=== PATIENT | female | born 1990 ===

== ENCOUNTER 2017-02-03 23:00 | Emergency (ER) | payer OTHER ==
[2017-02-03 23:12] VITALS: BP 110/68; PULSE 105; RESP 16; TEMP 98.4; O2SAT 98
[2017-02-03] MEDS ORDERED: Sodium Chloride 0.9% 1,000 ML IV STA (23:32)
[2017-02-03] MEDS ORDERED: Dextrose 5%/0.45% NS 1,000 ML IV SCH (23:45)
[2017-02-03 23:52] LABS: BASO % 0.5 % (0.0-2.0); EOS % 0.2 % (0.0-4.0); HEMATOCRIT 43.1 % (34.0-47.0); LYMPH # 1.7 K/uL (1.0-4.3); LYMPH % 17.1 % (20.0-40.0); MEAN CELL VOLUME 87.3 fl (81.0-99.0); MEAN CORPUSCULAR HEMOGLOBIN 28.3 pg (27.0-31.0); MEAN CORPUSCULAR HGB CONC 32.5 g/dL (33.0-37.0); MEAN PLATELET VOLUME 7.9 fl (7.2-11.7); MONO % 10.2 % (0.0-10.0); RED CELL DISTRIBUTION WIDTH 14.8 % (11.5-14.5); WHITE BLOOD COUNT 9.7 K/uL (4.8-10.8)
--- NOTE | 2017-02-03 23:58 | ED PDOC ---
HPI:Nausea, Vomiting, Diarrhea Time Seen by Provider: 02/03/17 23:18 Chief Complaint (Nursing): GI Problem Chief Complaint (Provider): Vomiting History Per: Patient History/Exam Limitations: no limitations Onset/Duration Of Symptoms: Days (x1) Current Symptoms Are (Timing): Still Present Have you had recent travel within the past 21 days to any of the following countries: [place], [place], [place] or [place]?: No Associated Symptoms: Nausea, Vomiting (non-bilious/non-bloody, more times than she can count), Other (generalized weakness/fatigue; no cough, shortness of breath, abdominal pain). denies: Fever, Diarrhea Additional Complaint(s): Jacquie Vasquez is a 26 year old female with a past medical history inclusive of a previous D&C, who presents to the ED on 02/03/17 for the evaluation of both nausea and multiple episodes (too many to count) of non- bilious/non-bloody vomiting that she has experienced over the course of the day today. Patient reports that she is now vomiting only clear fluid and that she has also been feeling generally weak/fatigued. Denies fever, cough, shortness of breath, abdominal pain or diarrhea. PMD: unable to remember name Past Medical History Reviewed: Historical Data, Nursing Documentation, Vital Signs Vital Signs: Last Vital Signs Temp 98.4 F 02/03/17 23:09 Pulse 105 H 02/03/17 23:09 Resp 16 02/03/17 23:09 BP 110/68 02/03/17 23:09 Pulse Ox 98 02/03/17 23:09 - Medical History PMH: No Chronic Diseases - Surgical History Other surgeries: D&C - Family History Family History: States: Unknown Family Hx - Social History Current smoker - smoking cessation education provided: No Alcohol: None Drugs: Denies - Home Medications Home Medications: Ambulatory Orders Medication Instructions Recorded Famotidine [Pepcid] 20 mg PO Q12 #14 tab 02/04/17 Ondansetron ODT [Zofran ODT] 4 mg PO Q6 PRN #16 odt 02/04/17 - Allergies Allergies/Adverse Reactions: Allergies Allergy/AdvReac Type Severity Reaction Status Date / Time No Known Allergies Allergy Verified 02/03/17 23:11 Review of Systems ROS Statement: Except As Marked, All Systems Reviewed And Found Negative Constitutional: Negative for: Fever Respiratory: Negative for: Cough, Shortness of Breath Gastrointestinal: Positive for: Nausea, Vomiting (multiple episodes, non-bilious /non-bloody/clear). Negative for: Abdominal Pain, Diarrhea Physical Exam - Reviewed Nursing Documentation Reviewed: Yes Vital Signs Reviewed: Yes - Physical Exam Appears: Positive for: Uncomfortable Head Exam: Positive for: ATRAUMATIC, NORMOCEPHALIC Skin: Positive for: Normal Color, Warm, Dry Eye Exam: Positive for: Normal appearance, PERRL ENT: Positive for: Other (tacky mucous membranes). Negative for: Pharyngeal Erythema, Tonsillar Exudate, Tonsillar Swelling Cardiovascular/Chest: Positive for: Regular Rate, Rhythm. Negative for: Murmur Respiratory: Positive for: Normal Breath Sounds. Negative for: Respiratory Distress Gastrointestinal/Abdominal: Positive for: Normal Exam, Soft. Negative for: Tenderness Back: Positive for: Normal Inspection Neurologic/Psych: Positive for: Alert, Oriented - Laboratory Results Result Diagrams: 02/03/17 23:30 02/03/17 23:30 Urine POC: Negative - ECG O2 Sat by Pulse Oximetry: 98 (RA) Pulse Ox Interpretation: Normal Medical Decision Making Medical Decision Makin:18 Initial Impression: 26 year old female with multiple episodes of vomiting Initial Plan: * Labs * Lipase * Upreg * Udip * Urinalysis * IV NS 1000ml at 1000mls/hr * Dextrose 1000ml at 1000mls/hr * Zofran 4mg IV * Reevaluation Upreg is negative. PAtient reports resolution in symptoms and feels well on discharge DX Acute Gastritis RX Zofran/Pepcid FU PCP 1-2 days Scribe Attestation: Documented by Senia Baires, acting as a scribe for Andi Eastman MD. Provider Scribe Attestation: All medical record entries made by the Scribe were at my direction and personally dictated by me. I have reviewed the chart and agree that the record accurately reflects my personal performance of the history, physical exam, medical decision making, and the department course for this patient. I have also personally directed, reviewed, and agree with the discharge instructions and disposition. Disposition - Clinical Impression Clinical Impression: Gastritis - Disposition Referrals: [facility] [Outside] Disposition: Routine/Home Disposition Time: 01:00 Condition: STABLE Prescriptions: Famotidine [Pepcid] 20 mg PO Q12 #14 tab Ondansetron ODT [Zofran ODT] 4 mg PO Q6 PRN #16 odt PRN Reason: Nausea/Vomiting Instructions: Gastritis (ED)
[2017-02-04 00:05] LABS: ALKALINE PHOSPHATASE 71 U/L (38-126); ALT/SGPT 38 U/L (9-52); AST/SGOT 43 U/L (14-36); BILIRUBIN,TOTAL 1.1 mg/dl (0.2-1.3); BLOOD UREA NITROGEN 13 mg/dl (7-17); CALCIUM 9.6 mg/dL (8.4-10.2); CARBON DIOXIDE 23 mmol/L (22-30); CHLORIDE 100 mmol/L (98-107); GFR AFRICAN-AMERICAN > 60; GLUCOSE,RANDOM 93 mg/dL (65-105); LIPASE 186 U/L (23-300); POTASSIUM 3.7 MMOL/L (3.6-5.0); RBC URINE 8 /hpf (0-3); SODIUM 141 mmol/l (132-148); TOTAL PROTEIN 8.8 G/DL (6.3-8.2); URINE BACTERIA OCC (<OCC); URINE BILIRUBIN NEGATIVE (NEGATIVE); URINE COLOR YELLOW (YELLOW); URINE GLUCOSE (UA) NEG (Normal); URINE KETONE 80 mg/dL (NEGATIVE); URINE LEUKOCYTE ESTERASE MOD Leu/uL (Negative); URINE PROTEIN 30 mg/dL (NEGATIVE); URINE UROBILINOGEN 0.2-1.0 mg/dL (0.2-1.0); WBC URINE 17 /hpf (0-5)
[2017-02-04 00:06] LABS: ALB/GLOB RATIO 1.1 (1.0-2.1); URINE BLOOD SMALL (NEGATIVE)
== END 2017-02-04 01:39 | disposition home or self-care (01) ==
LOC: H.ER 23:00
DX: K29.70 Gastritis, unspecified, without bleeding (principal); R11.2 Nausea with vomiting, unspecified; R19.7 Diarrhea, unspecified

== ENCOUNTER 2017-06-01 01:05 | Emergency (ER) | payer OTHER ==
[2017-06-01] MEDS ORDERED: Sodium Chloride 0.9% 1,000 ML IV STA (01:50)
--- NOTE | 2017-06-01 01:53 | ED PDOC ---
HPI: Headache Time Seen by Provider: 06/01/17 01:40 Chief Complaint (Nursing): Headache Chief Complaint (Provider): headache History Per: Patient History/Exam Limitations: no limitations Onset/Duration Of Symptoms: Days (6), Waxing/Waning Current Symptoms Are (Timing): Still Present Quality: Tightness, "Pain" Associated Symptoms: Photophobia, Nausea Additional History Per: Patient Additional Complaint(s): 27 y/o female presents with intermittent frontal headache x 6 days. Patient admits to similar headaches in past, was diagnosed with Migraines in [facility] but never started on meds. Patient notes no improvement of headache with Advil , last taken 18:00 yesterday. Denies fever, dizziness, vision changes, nausea/ vomiting, chest pain, shortness of breath, palpitations. Past Medical History Reviewed: Historical Data, Nursing Documentation, Vital Signs Vital Signs: Last Vital Signs Temp 99.2 F 06/01/17 01:31 Pulse 63 06/01/17 01:31 Resp 18 06/01/17 01:31 BP 101/68 06/01/17 01:31 Pulse Ox 100 06/01/17 01:31 - Medical History PMH: No Chronic Diseases - Surgical History Surgical History: No Surg Hx - Family History Family History: States: Unknown Family Hx - Home Medications Home Medications: Ambulatory Orders Medication Instructions Recorded Famotidine [Pepcid] 20 mg PO Q12 #14 tab 02/04/17 Ondansetron ODT [Zofran ODT] 4 mg PO Q6 PRN #16 odt 02/04/17 Acetaminophen/Butalbital/Caf 1 tab PO Q6 PRN #10 tab 06/01/17 [Fioricet] - Allergies Allergies/Adverse Reactions: Allergies Allergy/AdvReac Type Severity Reaction Status Date / Time No Known Allergies Allergy Verified 06/01/17 01:31 Review of Systems ROS Statement: Except As Marked, All Systems Reviewed And Found Negative Neurological: Positive for: Headache Physical Exam - Reviewed Nursing Documentation Reviewed: Yes Vital Signs Reviewed: Yes - Physical Exam Appears: Positive for: Well, Non-toxic, No Acute Distress Head Exam: Positive for: ATRAUMATIC, NORMAL INSPECTION, NORMOCEPHALIC Skin: Positive for: Normal Color Eye Exam: Positive for: Normal appearance, EOMI, PERRL ENT: Positive for: Normal ENT Inspection Cardiovascular/Chest: Positive for: Regular Rate, Rhythm Respiratory: Positive for: Normal Breath Sounds Gastrointestinal/Abdominal: Positive for: Normal Exam Back: Positive for: Normal Inspection Extremity: Positive for: Normal ROM Neurologic/Psych: Positive for: Alert, Oriented - Laboratory Results Result Diagrams: 06/01/17 02:24 06/01/17 02:24 - ECG O2 Sat by Pulse Oximetry: 100 - Progress ED Course And Treament: labs, IV fluids, IV reglan, PO tylenol On re-eval, patient notes only slight improvement of pain. CT head ordered EXAM: CT Head Without Intravenous Contrast CLINICAL HISTORY: 27 years old, female; Pain; Headache; Headache not specified TECHNIQUE: Axial computed tomography images of the head/brain without intravenous contrast. This CT exam was performed using one or more of the following dose reduction techniques: automated exposure control, adjustment of the mA and/or kV according to patient size, and/or use of iterative reconstruction technique. Coronal and sagittal reformatted images were created and reviewed. COMPARISON: No relevant prior studies available. FINDINGS: Brain: No acute intracranial hemorrhage. No significant white matter disease. No edema. Ventricles: No significant ventriculomegaly. Bones: No acute displaced fracture. Sinuses: Unremarkable as visualized. No acute sinusitis. Mastoid air cells: Unremarkable as visualized. No mastoid effusion. IMPRESSION: No acute intracranial hemorrhage, or suspicious mass effect. Patient now states headache almost resolved; patient offered IV toradol and states she would like to try Patient educated on findings, discharged with rx Fioricet. Advised follow up PMD 2-3 days. Return to ED for worsening/concerning symptoms. Disposition - Clinical Impression Clinical Impression: Headache - Patient ED Disposition Is Patient to be Admitted: No Counseled Patient/Family Regarding: Studies Performed, Diagnosis, Need For Followup, Rx Given - Disposition Referrals: [facility] [Outside] Disposition: Routine/Home Disposition Time: 05:50 Condition: IMPROVED Prescriptions: Acetaminophen/Butalbital/Caf [Fioricet] 1 tab PO Q6 PRN #10 tab PRN Reason: Headache Instructions: Migraine Headache (ED)
[2017-06-01 02:47] LABS: BASO % 0.3 % (0.0-2.0); EOS % 0.7 % (0.0-4.0); HEMOGLOBIN 13.7 g/dL (12.0-16.0); LYMPH # 1.7 K/uL (1.0-4.3); MEAN CELL VOLUME 86.7 fl (81.0-99.0); MEAN CORPUSCULAR HEMOGLOBIN 28.6 pg (27.0-31.0); MONO # 0.5 K/uL (0.0-0.8); MONO % 9.3 % (0.0-10.0); NEUT # 3.3 K/uL (1.8-7.0); NEUT % 59.7 % (50.0-75.0); NRBC % 0.1 % (0.0-0.0); RBC 4.78 Mil/uL (3.80-5.20); WHITE BLOOD COUNT 5.6 K/uL (4.8-10.8)
[2017-06-01 03:10] LABS: ALB/GLOB RATIO 1.4 (1.0-2.1); ALBUMIN 4.9 g/dL (3.5-5.0); ALT/SGPT 33 U/L (9-52); AST/SGOT 53 U/L (14-36); BLOOD UREA NITROGEN 17 mg/dl (7-17); CALCIUM 9.5 mg/dL (8.4-10.2); GFR AFRICAN-AMERICAN > 60; GFR NON-AFRICAN AMERICAN > 60
--- NOTE | 2017-06-01 05:32 | CT ---
EXAM: CT Head Without Intravenous Contrast CLINICAL HISTORY: 27 years old, female; Pain; Headache; Headache not specified TECHNIQUE: Axial computed tomography images of the head/brain without intravenous contrast. This CT exam was performed using one or more of the following dose reduction techniques: automated exposure control, adjustment of the mA and/or kV according to patient size, and/or use of iterative reconstruction technique. Coronal and sagittal reformatted images were created and reviewed. COMPARISON: No relevant prior studies available. FINDINGS: Brain: No acute intracranial hemorrhage. No significant white matter disease. No edema. Ventricles: No significant ventriculomegaly. Bones: No acute displaced fracture. Sinuses: Unremarkable as visualized. No acute sinusitis. Mastoid air cells: Unremarkable as visualized. No mastoid effusion. IMPRESSION: No acute intracranial hemorrhage, or suspicious mass effect.
[2017-06-01 05:57] VITALS: BP 111/59; PULSE 67; RESP 16; TEMP 98.6; O2SAT 98
== END 2017-06-01 05:57 | disposition home or self-care (01) ==
LOC: H.ER 01:05
DX: R51 Headache (principal)

== ENCOUNTER 2018-06-16 13:29 | Emergency (ER) | payer OTHER ==
[2018-06-16 13:50] VITALS: BP 122/79; PULSE 70; RESP 18; TEMP 97.7; O2SAT 100
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
--- NOTE | 2018-06-16 15:09 | RAD ---
Date of service: 06/16/2018 PROCEDURE: Right Wrist Radiographs. HISTORY: trauma COMPARISON: None. FINDINGS: BONES: Buckle fracture distal radius. Transverse orientation which does not extend to the articular surface. JOINTS: Normal. No dislocation. SOFT TISSUES: Normal. OTHER FINDINGS: None. IMPRESSION: Acute fracture distal right radius.
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
== END 2018-06-16 16:45 | disposition home or self-care (01) ==
LOC: H.ER 13:29
DX: S52.591A Other fractures of lower end of right radius, initial encounter for closed fracture (principal); W19.XXXA Unspecified fall, initial encounter; Y92.89 Other specified places as the place of occurrence of the external cause

== ENCOUNTER 2018-09-26 17:04 | Emergency (ER) | payer OTHER ==
[2018-09-26 17:13] VITALS: TEMP 98.4
[2018-09-26] MEDS ORDERED: Silver Sulfadiazine 1% CREAM (50 gm) ONE (17:23)
[2018-09-26] MEDS ORDERED: Tdap Vaccine 0.5 ml Vial (10-64 yrs) IM ONE ×2 (17:28→17:58)
[2018-09-26] MEDS ORDERED: Silver Sulfadiazine 1% CREAM (50 gm) TOP STA (17:28)
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
[2018-09-26] MEDS ORDERED: Oxycodone/Acetaminophen 5/325 mg Tab PO STA (18:23)
[2018-09-26] MEDS ORDERED: Oxycodone/Acetaminophen 5/325 mg Tab ONE (18:26)
[2018-09-26 22:37] VITALS: BP 112/74; PULSE 74; RESP 14; O2SAT 98
== END 2018-09-26 22:37 | disposition home or self-care (01) ==
LOC: H.ER 17:04
DX: S69.91XA Unspecified injury of right wrist, hand and finger(s), initial encounter (principal); F17.200 Nicotine dependence, unspecified, uncomplicated; X19.XXXA Contact with other heat and hot substances, initial encounter; Z23 Encounter for immunization
CPT/HCPCS: 90471; 90715; 96372; 96374; 96375; 99284; J1170; J1885; J2270; J2405; J2765

== ENCOUNTER 2019-01-03 12:31 | Emergency (ER) | payer OTHER ==
[2019-01-03] MEDS ORDERED: Sodium Chloride 0.9% 1,000 ML IV STA (13:10)
[2019-01-03 13:47] LABS: ALB/GLOB RATIO 1.1 (1.0-2.1); ALBUMIN 4.3 g/dL (3.5-5.0); ALT/SGPT 22 U/L (9-52); AST/SGOT 28 U/L (14-36); BLOOD UREA NITROGEN 15 mg/dl (7-17); CALCIUM 9.5 mg/dL (8.4-10.2); GFR NON-AFRICAN AMERICAN > 60
--- NOTE | 2019-01-03 13:51 | ED PDOC ---
HPI: SOB/CHF/COPD Time Seen by Provider: 01/03/19 12:49 Chief Complaint (Nursing): Shortness Of Breath Chief Complaint (Provider): Shortness Of Breath History Per: Patient History/Exam Limitations: no limitations Onset/Duration Of Symptoms: Days (x3 weeks) Additional Complaint(s): Jacquie Alexander is a 28 year old female with no past medical history, who presents to the emergency department complaining of flu like symptoms, including cough and congestion for the past x3 weeks. Patient states that yesterday she took a multivitamin specialized for "energy" and shortly after, around 230am, drank one red bull. She states that about 30-40 minutes after she started to get numbness to all her fingers tips bilaterally. Patient felt gittery, anxiety and has some shortness of breath. She denies any chest pain, palpitations, HI, SI, hemoptysis, leg pain, recent prolonged limb immobiliza tion, recent surgery, hormonal therapy, history of PE, DVT or thyroid disease. PMD: No provider Past Medical History Reviewed: Historical Data, Nursing Documentation, Vital Signs Vital Signs: Last Vital Signs Temp 97.6 F 01/03/19 12:41 Pulse 69 01/03/19 12:41 Resp 17 01/03/19 13:34 BP 136/87 01/03/19 12:41 Pulse Ox 98 01/03/19 13:34 - Medical History PMH: Migraine - Surgical History Surgical History: No Surg Hx - Family History Family History: States: Unknown Family Hx - Home Medications Home Medications: Ambulatory Orders Medication Instructions Recorded Famotidine [Pepcid] 20 mg PO Q12 #14 tab 02/04/17 Ondansetron ODT [Zofran ODT] 4 mg PO Q6 PRN #16 odt 02/04/17 Acetaminophen/Butalbital/Caf 1 tab PO Q6 PRN #10 tab 06/01/17 [Fioricet] Naproxen [Naprosyn] 500 mg PO BID PRN #10 tab 06/16/18 Ibuprofen [Motrin] 600 mg PO Q6 #20 tab 09/26/18 Silver Sulfadiazine [Silvadene] 1 ea TP BID #1 cream..g. 09/26/18 oxyCODONE/Acetaminophen [Percocet 1 ea PO Q6 PRN #10 tab 09/26/18 5/325 mg Tab] - Allergies Allergies/Adverse Reactions: Allergies Allergy/AdvReac Type Severity Reaction Status Date / Time No Known Allergies Allergy Verified 06/16/18 13:47 Review of Systems ROS Statement: Except As Marked, All Systems Reviewed And Found Negative ENT: Positive for: Nose Congestion Cardiovascular: Negative for: Chest Pain, Palpitations Respiratory: Positive for: Cough. Negative for: Hemoptysis Musculoskeletal: Negative for: Leg Pain Physical Exam - Reviewed Nursing Documentation Reviewed: Yes Vital Signs Reviewed: Yes - Physical Exam Appears: Positive for: Non-toxic, No Acute Distress Head Exam: Positive for: ATRAUMATIC, NORMOCEPHALIC Skin: Positive for: Normal Color, Warm, Dry Eye Exam: Positive for: Normal appearance, EOMI, PERRL ENT: Positive for: Normal ENT Inspection Cardiovascular/Chest: Positive for: Regular Rate, Rhythm. Negative for: Murmur Respiratory: Positive for: Normal Breath Sounds. Negative for: Respiratory Distress Gastrointestinal/Abdominal: Positive for: Normal Exam, Soft. Negative for: Tenderness Back: Positive for: Normal Inspection. Negative for: L CVA Tenderness, R CVA Tenderness, Vertebral Tenderness Neurologic/Psych: Positive for: Alert, Oriented, Mood/Affect (sightly anxious but easily consolable ). Negative for: Motor/Sensory Deficits - Laboratory Results Result Diagrams: 01/03/19 13:31 01/03/19 13:31 - ECG ECG: Positive for: Interpreted By Me ECG Rhythm: Positive for: Sinus Rhythm. Negative for: ST/T Changes Rate: 66 O2 Sat by Pulse Oximetry: 98 (RA) Pulse Ox Interpretation: Normal - Radiology X-Ray: Interpreted by Me (CXR) X-Ray Interpretation: No Acute Disease - Progress Re-evaluation Time: 14:20 (Sleeping comfortably. Easily arousable. Reports feeling much better. Informed of all results. Advised to f/u with PMD for further evaluation but is to return to ED immediately if symptoms worsen. ) Condition: Re-examined, Improved Medical Decision Making Medical Decision Making: Time: 1309 Plan: --EKG --CMP --Thyroid stimulating hormone --Urine drug screen --ED urine --CBC with differential --CXR (PA/LAT) --Sodium chloride 1,000 ml --Television Antenna Installer --Saline lock Scribe Attestation: Documented by Gonzalo Kim, acting as a scribe for Tho Mathur Provider Scribe Attestation: All medical record entries made by the Scribe were at my direction and personally dictated by me. I have reviewed the chart and agree that the record accurately reflects my personal performance of the history, physical exam, medical decision making, and the department course for this patient. I have also personally directed, reviewed, and agree with the discharge instructions and disposition. Disposition - Clinical Impression Clinical Impression: Anxiety - Patient ED Disposition Is Patient to be Admitted: No - Disposition Referrals: [facility] [Outside] Disposition: Routine/Home Disposition Time: 14:20 Condition: IMPROVED Additional Instructions: FOLLOW UP WITH [facility] FOR FURTHER EVALUATION RETURN TO ED IMMEDIATELY IF SYMPTOMS WORSEN JACQUIE ALEXANDER, thank you for letting us take care of you today. Your provider was Mario Jesus MD and you were treated for DIFFICULTY EMILY THING/WEAKNESS. The emergency medical care you received today was directed at your acute symptoms. If you were prescribed any medication, please fill it and take as directed. It may take several days for your symptoms to resolve. Return to the Emergency Department if your symptoms worsen, do not improve, or if you have any other problems. Please contact your doctor or call one of the physicians/clinics you have been referred to that are listed on the Patient Visit Information form that is inclu ded in your discharge packet. Bring any paperwork you were given at discharge with you along with any medications you are taking to your follow up visit. Our treatment cannot replace ongoing medical care by a primary care provider outside of the emergency department. Thank you for allowing the [facility] access hospital team to be part of your care today. If you had an X-Ray or CT scan: A Radiologist will review the ED reading if any change in treatment is needed we will contact you. If you had a blood, urine, or wound culture: It will take several days for the results, if any change in treatment is needed we will contact you. If you had an STI test: It will take 48 hours for the results. Please call after 1 week if you have not heard back. Instructions: Anxiety, Adult (DC) Forms: [employer] (Nepalese)
[2019-01-03 13:59] LABS: BARBITURATES, UR NEGATIVE (NEGATIVE); BENZODIAZEPINES, UR NEGATIVE (NEGATIVE); OPIATES, UR NEGATIVE (NEGATIVE); PHENCYCLIDINE, UR NEGATIVE (NEGATIVE)
[2019-01-03 14:00] LABS: BASO % 0.3 % (0.0-2.0); EOS % 0.4 % (0.0-4.0); HEMOGLOBIN 12.6 g/dL (12.0-16.0); LYMPH # 1.5 K/uL (1.0-4.3); LYMPH % 24.2 % (20.0-40.0); MEAN CELL VOLUME 85.9 fl (81.0-99.0); MEAN CORPUSCULAR HEMOGLOBIN 28.2 pg (27.0-31.0); MEAN CORPUSCULAR HGB CONC 32.9 g/dL (33.0-37.0); MEAN PLATELET VOLUME 8.1 fl (7.2-11.7); MONO # 0.8 K/uL (0.0-0.8); MONO % 13.7 % (0.0-10.0); NEUT # 3.8 K/uL (1.8-7.0); NEUT % 61.4 % (50.0-75.0); NRBC % 0.2 % (0.0-0.0); RBC 4.48 Mil/uL (3.80-5.20); RED CELL DISTRIBUTION WIDTH 15.4 % (11.5-14.5); WHITE BLOOD COUNT 6.2 K/uL (4.8-10.8)
--- NOTE | 2019-01-03 14:09 | RAD ---
Date of service: 01/03/2019 HISTORY: Cough COMPARISON: No prior. TECHNIQUE: Chest PA and lateral FINDINGS: LUNGS: No active pulmonary disease. PLEURA: No significant pleural effusion identified. No pneumothorax apparent. CARDIOVASCULAR: No aortic atherosclerotic calcification present. Normal cardiac size. No pulmonary vascular congestion. OSSEOUS STRUCTURES: No significant abnormalities. VISUALIZED UPPER ABDOMEN: Normal. OTHER FINDINGS: None. IMPRESSION: No active disease.
[2019-01-03 15:54] VITALS: BP 129/68; PULSE 71; RESP 18; TEMP 98; O2SAT 100
--- NOTE | 2019-01-04 10:12 | CARD ---
APPROVED REPORT Date of service: 01/03/2019 EKG Measurement Heart [id number] <Conclusion> Normal sinus rhythm Normal ECG
== END 2019-01-03 15:50 | disposition home or self-care (01) ==
LOC: H.ER 12:31
DX: F41.9 Anxiety disorder, unspecified (principal); J44.9 Chronic obstructive pulmonary disease, unspecified
CPT/HCPCS: 71046; 80053; 80324; 80345; 80346; 80349; 80353; 80358; 80361; 81025; 83992; 84443; 85025; 93005; 99283; J7030